=== PATIENT | male | born 1965 | race American Indian/Alaskan Native ===

== ENCOUNTER → 2017-11-23 | Day surgery (SDC) | payer BC ==
[2017-11-21 12:53] VITALS: BMI 26.8
[~2017-11-23] MED LIST: Iodixanol 320 MG/ML 100 ML BOTTLE IV ONE; Iodixanol 320 MG/ML 200 ML BOTTLE IV ONE; Iohexol 350mgl/ml 50 ML ONE; Lidocaine 2% Inj (20ml) ONE; Midazolam 2 MG/2 ML VIAL ONE; Nitroglycerin 50mg in D5W 0 MG/0 ML BOTTLE IV ONE; Phenylephrine 10 mg/ml Inj ONE; Sodium Chloride 0.9% 1,000 ML IV SCH
[2017-11-23 07:07] LABS: BASO # 0.03 K/mm3 (0.0-2.0); BASO % 0.6 % (0.0-3.0); EOS # 0.1 (0.0-0.7); EOS % 2.5 % (1.5-5.0); GRAN # 1.09 (1.4-6.5); GRAN % 21.1 % (50.0-68.0); HEMOGLOBIN 15.9 g/dL (14.0-18.0); LYMPH # 3.5 (1.2-3.4); LYMPH % 68.1 % (22.0-35.0); MEAN CELL VOLUME 81.9 fl (80.0-105.0); MEAN CORPUSCULAR HEMOGLOBIN 30.9 pg (25.0-35.0); MEAN CORPUSCULAR HGB CONC 37.7 g/dl (31.0-37.0); MEAN PLATELET VOLUME 10.3 fl (7.0-11.0); MONO # 0.4 (0.1-0.6); MONO % 7.7 % (1.0-6.0); RBC 5.15 10^6/uL (3.5-6.1); RED CELL DISTRIBUTION WIDTH 13.9 % (11.5-14.5); WHITE BLOOD COUNT 5.2 10^3/ul (4.5-11.0)
[2017-11-23 07:17] LABS: BLOOD UREA NITROGEN 17 mg/dL (7-21); CALCIUM 9.7 mg/dL (8.4-10.5); GFR AFRICAN-AMERICAN > 60; GFR NON-AFRICAN AMERICAN > 60; HDL CHOLESTEROL 72 mg/dL (29-60)
[2017-11-23 07:18] LABS: PARTIAL THROMBOPLASTIN TIME 30.9 Seconds (25.1-36.5); PROTHROMBIN TIME 11.5 SECONDS (9.4-12.5)
[2017-11-23 07:24] LABS: LDL CHOLESTEROL 101 mg/dL (0-129)
[2017-11-23 09:06] VITALS: TEMP 98.2
[2017-11-23 10:32] VITALS: RESP 16
--- NOTE | 2017-11-23 11:22 | CARDCATH ---
PROCEDURE DATE: 11/23/2017 CARDIAC CATHETERIZATION HISTORY: The patient is a 52-year-old male with a history of a dilated cardiomyopathy, who presents for cardiac evaluation. The patient's past medical history is a documented cardiomyopathy. Stress test was abnormal with multiple ischemic areas and a compromised left ventricle. Because of this, a cardiac catheterization was recommended. PROCEDURE: Left heart catheterization with coronary arteriography and left ventriculogram. The right femoral artery was cannulated with a 6-Montserratian sheath. There were no complications. I performed moderate sedation, which included the presence of an independent trained observer that assisted in monitoring the patient's level of consciousness and physiologic status. After administration of Versed and fentanyl, my intra service time was 15 minutes. The findings on catheterization revealed a left ventricle that was abnormal. In the MIKE projection, the anterior apical segments were markedly hypokinetic. Estimated ejection fraction is approximately 35%. His coronary anatomy revealed a right dominant circulation. The RCA revealed intimal irregularities without significant stenoses. The left main artery was within normal limits. The LAD was a large vessel that wrapped around the apex of the heart. The LAD and diagonal vessels were free of significant disease. There was a moderate size ramus intermedius vessel, which was free of significant disease. The circumflex artery and obtuse marginal branches revealed intimal irregularities without critical lesions. The patient tolerated the procedure well. Angio-Seal was used to close the femoral artery site. In summary, the procedure revealed a primary cardiomyopathy with an EF of approximately 35%. The wall motion abnormalities are suggestive of a possible previous Takotsubo cardiomyopathy. His coronary anatomy was free of critical lesions. Given these findings, the patient's treatment will be medical. We need to include an DIAZ inhibitor and possible digoxin if the patient has CHF symptoms. Boo Quinn MD
[2017-11-23 12:23] VITALS: BP 120/81; PULSE 88; O2SAT 97
--- NOTE | 2017-11-23 23:44 | CARD ---
APPROVED REPORT EKG Measurement Heart [id number] <Conclusion> Normal sinus rhythm Left axis deviation Nonspecific T wave abnormality Abnormal ECG
== END | disposition home or self-care (01) ==
LOC: CATH 06:25
PROVIDERS: ATTEND Internal Medicine Cardiovascular Disease
DX: I25.110 Atherosclerotic heart disease of native coronary artery with unstable angina pectoris (principal); R94.39 Abnormal result of other cardiovascular function study; I10 Essential (primary) hypertension; I42.0 Dilated cardiomyopathy; E78.5 Hyperlipidemia, unspecified; E78.00 Pure hypercholesterolemia, unspecified
CPT/HCPCS: 36415; 80048; 80061; 85025; 85610; 85730; 86850; 86900; 93005; 93458; 99152; C1760; C2629; J1644; J2250; J3010; J7030; J7040; Q9966; Q9967 ×2